=== PATIENT | female | born 1950 | race Caucasian/White ===

== ENCOUNTER → 2018-05-26 09:02 | Outpatient (CLI) | payer MEDICARE, OTHER ==
--- NOTE | ~2018-05-26 | ST ---
PATIENT:LORETO RAO MEDICAL RECORD: [id number] SEX: F LOCATION:[facility] ORDER #: ADMISSION DATE: 05/26/18 AGE OF PATIENT: 68 REFERRING PHYSICIAN: INTERPRETING PHYSICIAN: BENTLEY ROSENBERG MD DATE OF SERVICE: 05/26/2018 NUCLEAR STRESS TEST INDICATION: Angina, hypertension and hyperlipidemia. The patient was exercised on standard Kirk protocol for 10 minutes, terminated due to achievement or maxillary heart rate response with 33 mCi of sestamibi injected at peak stress 11 mCi used previously for rest images. FINDINGS: Gated SPECT reveals preserved ejection fraction at 79% with good wall motion and thickening and brightening throughout all segments. SPECT imaging Cardiolite was used as myocardial fusion agent. There is homogeneous uptake throughout all segments at rest and stress with no evidence of an inducible ischemia or previous infarction. OVERALL IMPRESSION: 1. This is a normal nuclear stress test with no evidence of inducible ischemia or previous infarction. 2. Gated SPECT reveals a preserved ejection fraction at greater than 70%. In this patient with ongoing symptomatology, the current scan does not suggest the presence of hemodynamically significant coronary artery disease. Evaluate noncardiac etiology of chest pain. TRANSINT:[id number] Voice Confirmation ID: [id number] DOCUMENT ID: [id number] BENTLEY ROSENBERG MD CC: ADELINA DIXON [id number] DICTATION DATE: 05/27/18 1135 SUPERVISOR GARMENT MANUFACTURING: 05/28/18 0523 DEP CLI 05/26/18 [id number] [place] [address]
== END | disposition home or self-care (01) ==
LOC: D.HCCARDIO 09:00
DX: I20.9 Angina pectoris, unspecified (principal)